=== PATIENT | male | born 1940 | race Caucasian/White ===

== ENCOUNTER 2018-06-09 22:38 | Inpatient (IN) ==
[2018-06-09] MEDS ORDERED: 0.9 % Sodium Chloride 1,000 ML IVC ONE (22:42)
--- NOTE | 2018-06-09 22:51 | Emergency Department Note ---
Disposition Clinical Impression: Constipation, Weakness Disposition: Admitted As Inpatient Condition: Fair Referrals: Sal Zazueta DO [Primary Care Provider] - Forms: ED Satisfaction Letter Time of Disposition: 00:15 ( will admit) General Adult HPI - General Chief complaint: ED Nausea/Vomiting/Diarrhea Stated complaint: DIARRHEA Time Seen by Provider: 06/09/18 22:42 Source: patient Mode of arrival: EMS Limitations: no limitations, age Nursing Notes Reviewed: Yes Vital Signs Reviewed: Yes - History of Present Illness HPI Narrative: 77-year-old male, who presents to the emergency department via EMS for evaluation for diarrhea and also confusion. Patient has known history of dementia, and has had problems with constipation. This evening according to EMS patient was having ongoing diarrhea, however family went ahead and gave the patient another enema. Patient's to me has stated his name year and who the president is, and for patient visit history of dementia he says alert and coherent. Patient states that after receiving the enema he felt like he had an impaction, however now that has resolved and he is feeling much better. I spoke with the patient's daughter who states that her father was actually impacted and not having diarrhea as she ended up having to do a digital disimpaction on the patient and get the patient an enema and after receiving the enema, patient was improved. Onset (ago): Just [employer] Location: abdomen Radiation: non-radiation Pain Scale: 0 Consistency: intermittent Improves with: nothing Worsens with: nothing Associated symptoms: Reports: denies other symptoms. Denies: confusion, chest pain, cough, diaphoresis, fever/chills, headaches, loss of appetite, malaise, nausea/vomiting, rash, seizure, shortness of breath Treatments Prior to Arrival: none - Related Data Home Medications Medication Instructions Recorded Confirmed Fluticasone Propionate Nasal 2 spray NS DAILY 04/12/16 06/09/18 [Flonase] Levothyroxine [Synthroid] 75 mcg PO DAILY 04/12/16 06/09/18 Losartan/Hydrochlorothiazide 1 each PO DAILY 04/12/16 06/09/18 [Hyzaar 100-25 Tablet] Montelukast [Singulair] 10 mg PO DAILY 04/12/16 06/09/18 Mv-Mn/FA/Vit K/Lycop/Lut/Coq10 1 each PO DAILY 04/12/16 06/09/18 [Daily Multivitamin Capsule] Potassium Chloride [Klor-Con 10] 10 meq PO BID 04/12/16 06/09/18 Tamsulosin [Flomax] 0.4 mg PO DAILY 04/12/16 06/09/18 amLODIPine [Norvasc] 10 mg PO DAILY 04/12/16 06/09/18 Rivaroxaban [Xarelto] 20 mg PO DAILY 03/25/17 06/09/18 Allergies Allergy/AdvReac Type Severity Reaction Status Date / Time acetaminophen [From Percocet] AdvReac Confusion Verified 06/09/18 08:36 [email or web address] AdvReac See Verified 06/09/18 08:36 Comments meperidine [From Demerol] AdvReac Vomiting Verified 06/09/18 08:36 oxycodone [From Percocet] AdvReac Confusion Verified 06/09/18 08:36 Limitations: ROS unobtainable due to patients medical condition Constitutional: Denies: fever, chills, weakness, weight change Eyes: Denies: eye pain, eye discharge, vision change ENT ED: Denies: ear pain, throat pain, dental pain, hearing loss, epistaxis, congestion, dysphagia Cardiovascular: Denies: chest pain, palpitations, dyspnea on exertion, edema, syncope Respiratory: Denies: cough, dyspnea, wheezes, hemoptysis, stridor Gastrointestinal: Denies: abdominal pain, nausea, vomiting, diarrhea, consti pation, hematemesis, melena, hematochezia Genitourinary: Denies: urgency, dysuria, frequency, hematuria Musculoskeletal: Denies: back pain, neck pain, arthralgia, myalgia Integumentary: Denies: rash, abrasion, lesions Neurological: Denies: headache, weakness, numbness, paresthesias, confusion, abnormal gait, vertigo Psychiatric: Denies: anxiety, depression, suicidal thoughts, homicidal thoughts, auditory hallucinations, visual hallucinations Endocrine: Denies: fatigue Hematological/Lymphatic: Denies: easy bleeding, easy bruising Allergic/Immunologic: Denies: facial swelling, urticaria Past Medical History - Past Medical History Medical history: Reports: asthma, atrial fibrillation, COPD Surgical history: Reports: cataract, cholecystectomy, herniorrhaphy, orthopedic, other, thyroidectomy Psychiatric history: Reports: no psych history - Social History Smoking Status: Never smoker Smokeless Tobacco Status: No Alcohol use: Reports: none Drug use: Reports: none Physical Exam - General Limitations: no limitations General appearance: alert, in no apparent distress - Head Head exam: atraumatic, normocephalic, normal inspection - Eye Eye exam: Present: normal appearance, PERRL, EOMI - Expanded Eye Exam Pupils: Left: reactive - ENT ENT exam: normal exam, normal oropharynx, mucous membranes moist - Expanded ENT Exam External ear exam: Present: normal external inspection Mouth exam: Present: normal external inspection Teeth exam: Present: normal inspection Throat exam: Present: normal inspection - Neck Neck exam: Present: normal inspection, full ROM, trachea midline - Chest Chest inspection: Present: normal inspection, symmetric chest wall rise - Respiratory Respiratory exam: Present: normal lung sounds bilaterally - Cardiovascular Cardiovascular exam: Present: regular rate, normal rhythm, normal heart sounds - Abdominal Exam Abdominal exam: Present: soft, Non-Tender. Absent: tenderness, distention, guarding, rebound, rigidity - Extremities Exam Extremities exam: Present: normal inspection, full ROM. Absent: tenderness, pedal edema - Expanded Upper Extremity Exam Shoulder exam: Present: normal inspection, full ROM Arm exam: Present: normal inspection, full ROM Elbow exam: Present: normal inspection, full ROM Forearm/Wrist exam: Present: normal inspection, full ROM Hand exam: Present: normal inspection, full ROM Vascular exam: Normal: capillary refill, radial pulse - Expanded Lower Extremity Exam Hip/Pelvis exam: Present: normal inspection, full ROM Upper leg exam: Present: normal inspection, full ROM Knee exam: Present: normal inspection, full ROM Lower leg exam: Present: normal inspection, full ROM Ankle exam: Present: normal inspection, full ROM Foot/toe exam: Present: normal inspection, full ROM Neurovascular/Tendon exam: Absent: motor deficit, sensory deficit, tendon deficit - Back Exam Back exam: Present: normal inspection, full ROM. Absent: tenderness - Neurological Exam Neurological exam: Present: alert, oriented X3 - Expanded Neurological Exam Patient oriented to: Present: person, place, time Coma Scale Eye Opening: Spontaneous Coma Scale Motor Response: Obeys Commands Coma Scale Verbal Response: Oriented Coma Scale Total: 15 - Psychiatric Psychiatric exam: Present: normal affect, normal mood - Skin Skin exam: Present: warm, dry, intact, normal color Course Vital Signs Temperature 97.2 F L 06/09/18 22:38 Pulse Rate 76 06/09/18 22:38 Respiratory Rate 18 06/09/18 22:38 Blood Pressure 126/72 06/09/18 22:38 O2 Sat by Pulse Oximetry 95 06/09/18 22:38 Temperature 97.2 F L 06/09/18 22:38 Pulse Rate 76 06/09/18 22:38 Respiratory Rate 18 06/09/18 22:38 Blood Pressure 126/72 06/09/18 22:38 O2 Sat by Pulse Oximetry 95 06/09/18 22:38 Oxygen Delivery Oxygen Delivery Room Air Medical Decision Making - MDM Narrative Medical decision making narrative: Patient did have a large bowel movement while,, he was in the room, I went ahead and did some more digital disimpaction(, patient is still quite impacted, due to the fact that he is quite weak while he is trying to stand, patient is at more risk for falling, I spoke with the daughter regarding possible senior living placement, she did not want the patient. In the senior living but stated that she did not feel comfortable having the patient go home. At this point I spoke with the hospitalist Dr. Piper, and we will place the patient and for overnight observation. - Medical Records Medical records reviewed: Yes I reviewed the patient's medical records. - Lab Data Lab results reviewed: Yes I reviewed the patient's lab results. Result diagrams: 06/09/18 23:03 06/09/18 23:03 Lab Results 06/09/18 06/09/18 06/09/18 Range/Units 23:00 23:03 23:03 WBC 10.3 (4.3-11.1) K/mcL RBC 3.66 L (4.19-5.50) M/mcL Hgb 10.9 L (12.9-16.9) g/dL Hct 32.9 L (37.5-50.1) % MCV 89.9 (83.0-100.0) fL MCH 29.8 (28.0-33.3) pg MCHC 33.1 (31.6-35.5) g/dL RDW 14.3 (11.5-14.5) % Plt Count 184 (140-400) K/mcL MPV 10.9 (9.4-12.4) fL Immature Gran % 0.3 (0-4) % Seg Neutrophils % 78.5 % Lymphocytes % 9.1 % Monocytes % 10.7 % Eosinophils % 1.0 % Basophils % 0.4 % Neutrophils # 8.1 (1.6-8.9) K/mcL Lymphocytes # 0.9 (0.6-4.6) K/mcL Monocytes # 1.1 (0.0-1.3) K/mcL Eosinophils # 0.1 (0.0-0.6) K/mcL Basophils # 0.0 (0.0-0.2) K/mcL Sodium 136 (136-145) mEq/L Potassium 3.1 L (3.5-5.1) mEq/L Chloride 101 (98-107) mEq/L Carbon Dioxide 27 (23-29) mEq/L BUN 14 (8-23) mg/dL Creatinine 0.73 (0.70-1.30) mg/dL Est GFR ( Amer) > 60 (> 60) Est GFR (Non-Af Amer) > 60 (> 60) BUN/Creatinine Ratio 19 (6-26) Glucose 114 H (70-105) mg/dL Calculated Osmolality 283 (280-300) Calcium 9.2 (8.6-10.3) mg/dL Total Bilirubin 0.6 (0.3-1.0) mg/dL AST 17 (13-39) Units/L ALT 16 (7-52) Units/L Alkaline Phosphatase 40 (34-104) Units/L Serum Total Protein 6.0 L (6.4-8.9) g/dL Albumin 3.8 (3.5-5.7) g/dL Globulin 2.2 L (2.4-3.5) g/dL Albumin/Globulin Ratio 1.7 (1.1-2.2) Lipase 5 L (11-82) Units/L Urine Color Yellow (Yellow) Urine Clarity Clear (Clear) Urine pH 5.5 (5.0-8.0) pH Units Ur Specific [place] 1.020 (1.010-1.025) Urine Protein Negative (Neg-Trace) mg/dL Urine Glucose (UA) Normal (Normal) mg/dL Urine Ketones Negative (Negative) mg/dL Urine Blood Negative (Negative) Urine Nitrite Negative (Negative) Urine Bilirubin Negative (Negative) Urine Urobilinogen Normal (Normal) mg/dL Ur Leukocyte Esterase Negative (Negative) Ur Culture Indicated? NO (NO) - Radiology Data Radiology results reviewed: Yes I reviewed the patient's radiology results. CT of abdomen and pelvis without contrast per radiology reading shows moderate constipation CT of head without contrast per radiology reading shows no acute abnormality.
[2018-06-09 23:15] LABS: Basophils % 0.4 %; Eosinophils # 0.1 K/mcL (0.0-0.6); Hematocrit 32.9 % (37.5-50.1); Hemoglobin 10.9 g/dL (12.9-16.9); Immature Granulocytes % 0.3 % (0-4); Lymphocytes # 0.9 K/mcL (0.6-4.6); Lymphocytes % 9.1 %; Mean Corpuscular HGB Conc 33.1 g/dL (31.6-35.5); Mean Corpuscular Hemoglobin 29.8 pg (28.0-33.3); Mean Corpuscular Volume 89.9 fL (83.0-100.0); Mean Platelet Volume 10.9 fL (9.4-12.4); Monocytes # 1.1 K/mcL (0.0-1.3); Monocytes % 10.7 %; Neutrophils # 8.1 K/mcL (1.6-8.9); Platelet Count 184 K/mcL (140-400); Red Blood Count 3.66 M/mcL (4.19-5.50); Red Cell Distribution Width 14.3 % (11.5-14.5); Segmented Neutrophils % 78.5 %
[2018-06-09 23:18] LABS: Bilirubin,Urine Negative (Negative); Blood,Urine Negative (Negative); Clarity,Urine Clear (Clear); Color,Urine Yellow (Yellow); Glucose,Urine (UA) Normal (Normal); Ketones,Urine Negative (Negative); Leukocyte Esterase,Urine Negative (Negative); Nitrite,Urine Negative (Negative); PH,Urine 5.5 pH Units (5.0-8.0); Protein,Urine Negative (Neg-Trace); Urobilinogen,Urine Normal (Normal)
[2018-06-09 23:32] LABS: Alanine Aminotransferase 16 Units/L (7-52); Albumin 3.8 g/dL (3.5-5.7); Albumin/Globulin Ratio 1.7 (1.1-2.2); Alkaline Phosphatase 40 Units/L (34-104); Aspartate Amino Transferase 17 Units/L (13-39); BUN/Creatinine Ratio 19 (6-26); Bilirubin,Total 0.6 mg/dL (0.3-1.0); Blood Urea Nitrogen 14 mg/dL (8-23); Calcium 9.2 mg/dL (8.6-10.3); Carbon Dioxide 27 mEq/L (23-29); Chloride 101 mEq/L (98-107); Globulin 2.2 g/dL (2.4-3.5); Glucose 114 mg/dL (70-105); Lipase 5 Units/L (11-82); Osmolality,Calculated 283 (280-300); Potassium 3.1 mEq/L (3.5-5.1); Sodium 136 mEq/L (136-145); eGFR For Non-African Americans > 60 (> 60)
[2018-06-10] MEDS ORDERED: Naloxone 0.4 MG/ML INJ IVP PRN ×2 (00:11→02:01)
[2018-06-10] MEDS ORDERED: Losartan/HCTZ 50-12.5 TABLET PO SCH (09:00)
[2018-06-10] MEDS: *HR* Rivaroxaban 10 MG TABLET PO SCH (09:23)
[2018-06-10] MEDS: Multivit/Ca/Min/Fe/FA 1 TAB TABLET PO SCH (09:23)
[2018-06-10] MEDS: amLODIPine 5 MG TABLET PO SCH (09:23)
[2018-06-10] MEDS: Fluticasone Propionate Nasal 50 MCG/SPRAY BOTTLE NS SCH (09:30)
--- NOTE | 2018-06-10 15:29 | Internal Med History&Physical ---
Date of Encounter: 06/10/18 Time of Encounter: 14:45 Assessment and Plan (1) Diarrhea Current visit: No Status: Acute Improved after repeat enema done on arrival to [facility] floor. Continue to monitor. Qualifiers: Diarrhea type: unspecified type Qualified Code(s): R19.7 - Diarrhea, unspecified (2) Fall Current visit: No Status: Acute PT and OT evaluations will be done. Orthostatic vital signs will be checked. Qualifiers: Encounter type: initial encounter Qualified Code(s): W19.XXXA - Unspecified fall, initial encounter (3) Hypokalemia Current visit: Yes Status: Acute Supplemental potassium will be given an labs monitored. (4) Anemia Current visit: Yes Status: Acute CBC and anemia testing will be ordered in a.m. Qualifiers: Anemia type: unspecified type Qualified Code(s): D64.9 - Anemia, unspecified (5) Weight loss Current visit: Yes Status: Acute TSH was normal at 2.740 on 03/15/2018. Chest CT 01/22/2018 and abdominal/pelvic CT done today showed no worrisome pathology suggesting malignancy. (6) Hypertension Current visit: Yes Status: Chronic June 10. Continue Norvasc but hold Hyzaar because of hypokalemia Qualifiers: Hypertension type: essential hypertension Qualified Code(s): I10 - Essential (primary) hypertension (7) Hypothyroidism Current visit: Yes Status: Chronic TSH normal at 2.740 on 03/15/2018. Continue present dose Synthroid. Qualifiers: Hypothyroidism type: unspecified Qualified Code(s): E03.9 - Hypothyroidism, unspecified (8) Atrial fibrillation Current visit: Yes Status: Chronic Continue Xarelto. Qualifiers: Atrial fibrillation type: paroxysmal Qualified Code(s): I48.0 - Paroxysmal atrial fibrillation Internal Medicine - H&P: HPI Chief complaint: Diarrhea, weakness, confusion Admitted From: Emergency Dept Plans for Post Hospital Care: Home History of present illness: Mr. Hollingsworth is a 77 year old male who came to emergency room reporting "diarrhea" onset the evening of 06/07/2018. His daughter who is a nurse checked him at home and felt he had constipation with liquid stool seeping around the formed stool. She gave him an enema at home with minimal results. He seemed more confused and weak so came to emergency room. He was found to have hypokalemia and anemia. CT scan showed moderate retained rectal stool suggesting constipation. He was admitted to [facility] floor for ongoing care needs. GI history is pertinent for cholecystectomy remotely. He denies disorders of his liver or exocrine pancreas. He has had intermittent abdominal pain. He denies fevers or chills. His daughter reports he has had weakness with a fall at home the evening of June 07. Evaluation in emergency room showed no fracture and he was discharged home. Past Med Surg Social Fam HX - Past Medical History Medical history: asthma, atrial fibrillation, COPD Additional medical history: pneumonia, stomach ulcer Psychiatric history: no psych history - Past Surgical History Surgical History: cataract, cholecystectomy, herniorrhaphy, orthopedic, other, thyroidectomy Additional surgical history: hemorrhoid,hernia, knee surgery - Social History Smoking Status: Never smoker Smokeless Tobacco Status: No Alcohol use: none Drug use: none - Family History Father Hx Family Cardiac Disorders: Yes Hx Family Respiratory Disorders: Yes Internal Medicine - H&P: Meds Fluticasone Propionate Nasal [Flonase] 2 spray NS DAILY 04/12/16 [History] Levothyroxine [Synthroid] 75 mcg PO DAILY 04/12/16 [History] Losartan/Hydrochlorothiazide [Hyzaar 100-25 Tablet] 1 each PO DAILY 04/12/16 [History] Montelukast [Singulair] 10 mg PO DAILY 04/12/16 [History] Mv-Mn/FA/Vit K/Lycop/Lut/Coq10 [Daily Multivitamin Capsule] 1 each PO DAILY 04/12/16 [History] Potassium Chloride [Klor-Con 10] 10 meq PO BID 04/12/16 [History] Tamsulosin [Flomax] 0.4 mg PO DAILY 04/12/16 [History] amLODIPine [Norvasc] 10 mg PO DAILY 04/12/16 [History] Rivaroxaban [Xarelto] 20 mg PO DAILY 03/25/17 [History] Acetaminophen [Arthritis Pain Relief] 650 mg PO BID 06/10/18 [History] Budesonide/Formoterol 160/4.5 [Symbicort 160/4.5] 2 puff IH BIDR 06/10/18 [History] Clotrimazole/Betamethasone Dip [Lotrisone Cream] 45 gm TP BID 06/10/18 [History] Ipratropium [place] 15 ml NS BID 06/10/18 [History] Ipratropium/Albuterol Neb [Duoneb] 3 ml IH Q6HR 06/10/18 [History] Ipratropium/Albuterol Neb [Duoneb] 3 ml IH Q6HR 06/10/18 [History] Losartan/Hydrochlorothiazide [Hyzaar 100-25 Tablet] 1 each PO DAILY 06/10/18 [History] Metoprolol Succinate [Toprol Xl] 25 mg PO DAILY 06/10/18 [History] Allergy/AdvReac Type Severity Reaction Status Date / Time acetaminophen [From Percocet] AdvReac Confusion Verified 06/09/18 08:36 [email or web address] AdvReac See Verified 06/09/18 08:36 Comments meperidine [From Demerol] AdvReac Vomiting Verified 06/09/18 08:36 oxycodone [From Percocet] AdvReac Confusion Verified 06/09/18 08:36 All Systems PM: A 10-system review of systems was performed and is negative for pertinent findings except as documented above in the HPI. Review of systems: Gen.: He states his weight has decreased from 269 pounds 2 years ago to present weight of 204 pounds, unintentionally Cardiovascular: He has history of hypertension and atrial fibrillation (? Paroxysmal). There is no known ID heart failure angina DVT or pulmonary embolus. Echocardiogram 05/11/2016 showed LVEF of 65%. The interventricular septum and posterior wall thickness measurements were 1.15 and 1.00 cm resp ectively. No significant valvular abnormality was seen. Indeterminate diastolic function assessment could be done because of atrial fibrillation. There was reported biatrial enlargement although LA size was 3.80 cm. Right atrial size is not recorded. Respiratory: He smoked from age [age]. He has been told he has asbestos damage to his lungs. Pulmonary function testing 09/25/2015 showed FVC 73% predicted, FEV1 73% predicted, FEV1/FVC 72%, MVV 47% predicted, RV 130% predicted, and DLCO (uncorrected) 73%. There was minimal improvement in FEV1 postbronchodilator. GI: As per history of present illness : He has had occasional hematuria in the past. He denies known disorders of his kidney bladder prostate otherwise. Neurologic: He is been diagnosed with dementia and is on donepezil. There is no known large distribution strokes or seizures. Endocrine: He had partial thyroidectomy remotely and is now on supplemental levothyroxine for hypothyroidism. He has no known diabetes or hyperlipidemia Hematology/oncology: He denies blood disorders cancers or anemia Psychiatric: He denies anxiety depression or other mental health issues [place] skeletal: He has DJD and had remote left knee meniscus surgery. He denies other bone joint or muscle disorders. - Constitutional Vitals: Temp Pulse Resp BP Pulse Ox 98.3 F 81 20 130/84 93 06/10/18 15:20 06/10/18 15:20 06/10/18 15:20 06/10/18 15:20 06/10/18 15:20 Exam: Gen.: He is a well-developed overweight male resting comfortably in bed who appears in no severe distress HEENT: Head is atraumatic and normocephalic. Eyes: EOMI. There is no scleral icterus. Mouth: Mucosa is moist. Neck: Supple and nontender. There is no thyromegaly or adenopathy noted. Heart: Regular without murmurs gallops or ectopics Lungs: No wheezes or crackles are heard. Abdomen: Soft and nontender. No masses or guarding are noted. Extremities: He has a large hematoma on his right lateral hip area. It has dissected proximally through tissue planes to his lower right abdominal side. There is no cyanosis edema or clubbing noted. Dorsalis pedis and posterior tibial pulses are trace to 1+ palpable bilaterally. Neurologic: Mental status: He is talkative and a fair historian. He does not remember several details of his past history. Cranial nerves: Smile is sym metric. Forehead wrinkles bilaterally. Tongue protrudes midline. EOMI. Motor: There is no pronator drift. Cerebellar: Finger to nose is intact bilaterally. Skin: Warm and dry Internal Med - H&P Results - Labs CBC & Chem 7: 06/09/18 23:03 06/09/18 23:03 Labs: Short CBC 06/09/18 Range/Units 23:03 WBC 10.3 (4.3-11.1) K/mcL Hgb 10.9 L (12.9-16.9) g/dL Hct 32.9 L (37.5-50.1) % Plt Count 184 (140-400) K/mcL Neutrophils # 8.1 (1.6-8.9) K/mcL BMP 06/09/18 23:03 Sodium 136 Potassium 3.1 L Chloride 101 Carbon Dioxide 27 BUN 14 Creatinine 0.73 Glucose 114 H Calcium 9.2 Liver Function 06/09/18 Range/Units 23:03 Total Bilirubin 0.6 (0.3-1.0) mg/dL AST 17 (13-39) Units/L ALT 16 (7-52) Units/L Alkaline Phosphatase 40 (34-104) Units/L Albumin 3.8 (3.5-5.7) g/dL Urine 06/09/18 Range/Units 23:00 Urine Color Yellow (Yellow) Urine Clarity Clear (Clear) Urine pH 5.5 (5.0-8.0) pH Units Ur Specific [place] 1.020 (1.010-1.025) Urine Protein Negative (Neg-Trace) mg/dL Urine Glucose (UA) Normal (Normal) mg/dL - Impressions ITS Impressions Head CT 06/09/18 22:47 IMPRESSION: No acute intracranial abnormality. Moderate chronic small vessel ischemic disease D/ / Zhen Garibay / Zhen Garibay Interpreting Provider: Zhen Garibay Abdomen/Pelvis CT 06/09/18 22:48 IMPRESSION: 1. Moderate retained rectal stool suggesting underlying constipation. No acute inflammatory changes. No evidence of appendicitis. 2. No other acute findings within the abdomen or pelvis. 3. Stable left adrenal adenoma. 4. Moderate prostatomegaly. Mild bladder wall thickening, possibly accentuated by incomplete bladder distention. 5. 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 Stable subpleural fibrotic changes at the lung bases. 6. Infiltration of the subcutaneous fat in the lower abdomen and pelvis, right greater than left. More focal soft tissue attenuation posteriorly on the right suggesting possibly resolving contusions. D/ / 06/10/2018 07:34:07 Zechariah Fragoso MD / [facility] Interpreting Provider: Zechariah Fragoso MD
[2018-06-10] MEDS: Finasteride 5 MG TABLET PO SCH (21:40)
[2018-06-10] MEDS: ALPRAZolam 0.5 MG TABLET PO PRN (22:05)
[2018-06-11 06:51] LABS: Basophils # 0.1 K/mcL (0.0-0.2); Basophils % 0.8 %; Eosinophils # 0.5 K/mcL (0.0-0.6); Eosinophils % 5.7 %; Hemoglobin 11.7 g/dL (12.9-16.9); Immature Granulocytes % 0.4 % (0-4); Lymphocytes # 1.1 K/mcL (0.6-4.6); Lymphocytes % 11.8 %; Mean Corpuscular HGB Conc 33.4 g/dL (31.6-35.5); Mean Corpuscular Hemoglobin 30.4 pg (28.0-33.3); Mean Corpuscular Volume 90.9 fL (83.0-100.0); Mean Platelet Volume 10.9 fL (9.4-12.4); Monocytes # 0.9 K/mcL (0.0-1.3); Monocytes % 9.9 %; Neutrophils # 6.6 K/mcL (1.6-8.9); Platelet Count 180 K/mcL (140-400); Red Blood Count 3.85 M/mcL (4.19-5.50); Red Cell Distribution Width 14.4 % (11.5-14.5); Segmented Neutrophils % 71.4 %
[2018-06-11 07:17] LABS: BUN/Creatinine Ratio 12 (6-26); Blood Urea Nitrogen 6 mg/dL (8-23); Calcium 8.7 mg/dL (8.6-10.3); Carbon Dioxide 30 mEq/L (23-29); Chloride 103 mEq/L (98-107); Glucose 93 mg/dL (70-105); Osmolality,Calculated 285 (280-300); Potassium 3.3 mEq/L (3.5-5.1); Sodium 139 mEq/L (136-145); eGFR For Non-African Americans > 60 (> 60)
[2018-06-11 08:43] LABS: % Iron Saturation 8 % (20-55); Iron 22 mcg/dL (65-175); Transferrin 199 mg/dL (203-362)
[2018-06-11 09:01] LABS: Ferritin 64 ng/mL (20-250)
[2018-06-11 09:06] LABS: Folate 19.7 ng/mL (3.0-16.0)
[2018-06-11] MEDS: Finasteride 5 MG TABLET PO SCH (10:19)
[2018-06-11] MEDS: Multivit/Ca/Min/Fe/FA 1 TAB TABLET PO SCH (10:21)
[2018-06-11] MEDS: Fluticasone Propionate Nasal 50 MCG/SPRAY BOTTLE NS SCH (10:24)
--- NOTE | 2018-06-11 12:22 | Internal Med Progress Note ---
Date of Encounter: 06/11/18 Time of Encounter: 12:10 - Assessment and plan (1) Diarrhea Current Visit: No Status: Acute Assessment and plan: June 11. Resolved. He is now on MiraLAX to maintain normal BM pattern. Qualifiers: Diarrhea type: unspecified type Qualified Code(s): R19.7 - Diarrhea, unspecified (2) Fall Current Visit: No Status: Acute Assessment and plan: June 11. PT and OT evaluations have been done. Orthostatic vital signs showed a pressure dropped from 146/73 lying to 97/68 standing. Hyzaar was discontinued on admission due to hypokalemia. Norvasc will be discontinued. He will be changed from Flomax to Cardura to treat BPH/urinary retention and hypertension. Qualifiers: Encounter type: initial encounter Qualified Code(s): W19.XXXA - Unspecified fall, initial encounter (3) Hypokalemia Current Visit: Yes Status: Acute Assessment and plan: June 11. Potassium improved to 3.3. Continue potassium supplementation. (4) Anemia Current Visit: Yes Status: Acute Assessment and plan: June 11. Anemia testing showed iron 22, transferrin saturation 8%, transferrin 199, ferritin 64, B12 575, and folate 19.7. Start ferrous sulfate with ascorbic acid in a.m. Etiology of iron deficiency anemia can be pursued by his PCP with colonoscopy etc. as an outpatient Qualifiers: Anemia type: unspecified type Qualified Code(s): D64.9 - Anemia, unspec ified (5) Weight loss Current Visit: Yes Status: Acute Assessment and plan: June 11. TSH was normal at 2.740 on 03/15/2018. Chest CT 01/22/2018 and abdominal/pelvic CT done today showed no worrisome pathology suggesting malignancy. (6) Hypertension Current Visit: Yes Status: Chronic Assessment and plan: June 11. Remain off Hyzaar. Discontinue Norvasc because of severe orthostatic blood pressure drop and avoiding edema requiring diuretic use. He will start Cardura for hypertension and BPH/urinary retention. Dose can be titrated as an outpatient as needed. Qualifiers: Hypertension type: essential hypertension Qualified Code(s): I10 - Es sential (primary) hypertension (7) Hypothyroidism Current Visit: Yes Status: Chronic Assessment and plan: June 11. TSH normal at 2.740 on 03/15/2018. Continue present dose Synthroid. Qualifiers: Hypothyroidism type: unspecified Qualified Code(s): E03.9 - Hypothyroidism, unspecified (8) Atrial fibrillation Current Visit: Yes Status: Chronic Assessment and plan: June 11. Continue Xarelto Qualifiers: Atrial fibrillation type: paroxysmal Qualified Code(s): I48.0 - Paroxysmal atrial fibrillation - Subjective Interval history: June 11. He had urinary retention during the night requiring Smallwood catheter insertion. Over 700 mL urine was obtained. Catheter was irritating so was removed this morning. He was started on Flomax and Proscar. He states he does not feel he needs to have a BM at this time. He denies other new complaints. - Constitutional Vitals: Temp Pulse Resp BP Pulse Ox 98.1 F 90 20 119/76 96 06/11/18 11:33 06/11/18 11:33 06/11/18 11:33 06/11/18 11:33 06/11/18 11:33 Exam: He is sitting in a chair at bedside resting comfortably and appears in no acute distress. His affect is bright and cheerful. He is appropriate in conve rsation. I reviewed his medications and lab results. Internal Medicine: Result - Labs CBC & Chem 7: 06/11/18 06:10 06/11/18 06:10 Labs: Short CBC 06/11/18 Range/Units 06:10 WBC 9.2 (4.3-11.1) K/mcL Hgb 11.7 L (12.9-16.9) g/dL Hct 35.0 L (37.5-50.1) % Plt Count 180 (140-400) K/mcL Neutrophils # 6.6 (1.6-8.9) K/mcL BMP 06/11/18 06:10 Sodium 139 Potassium 3.3 L Chloride 103 Carbon Dioxide 30 H BUN 6 L Creatinine 0.51 L Glucose 93 Calcium 8.7 - Impressions Impressions Abdomen/Pelvis CT 06/09/18 22:48 IMPRESSION: 1. Moderate retained rectal stool suggesting underlying constipation. No acute inflammatory changes. No evidence of appendicitis. 2. No other acute findings within the abdomen or pelvis. 3. Stable left adrenal adenoma. 4. Moderate prostatomegaly. Mild bladder wall thickening, possibly accentuated by incomplete bladder distention. 5. 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 Stable subpleural fibrotic changes at the lung bases. 6. Infiltration of the subcutaneous fat in the lower abdomen and pelvis, right greater than left. More focal soft tissue attenuation posteriorly on the right suggesting possibly resolving contusions. D/ / 06/10/2018 07:34:07 Zechariah Fragoso MD / kalyn Interpreting Provider: Zechariah Fragoso MD Consult Discharge Plan - Plan Referrals: Sal Zazueta DO [Primary Care Provider] - 1 week
[2018-06-11] MEDS: *HR* Rivaroxaban 10 MG TABLET PO SCH (13:09)
[2018-06-11] MEDS: Ipratropium/Albuterol Neb 3 ML IH SCH ×3 (13:27→22:01)
[2018-06-11] MEDS: Budesonide/Formoterol 160/4.5 1 PUFF INH IH SCH ×2 (13:27→22:01)
[2018-06-11] MEDS: ALPRAZolam 0.5 MG TABLET PO PRN (20:29)
[2018-06-11] MEDS: amLODIPine 5 MG TABLET PO SCH (23:18)
[2018-06-12] MEDS: Ipratropium/Albuterol Neb 3 ML IH SCH ×2 (04:18→10:10)
[2018-06-12 06:29] VITALS: BP 124/72
[2018-06-12] MEDS ORDERED: Ascorbic Acid 500 MG TABLET PO SCH (06:30)
[2018-06-12] MEDS: Fluticasone Propionate Nasal 50 MCG/SPRAY BOTTLE NS SCH (07:57)
[2018-06-12] MEDS: Multivit/Ca/Min/Fe/FA 1 TAB TABLET PO SCH (08:01)
[2018-06-12] MEDS: Finasteride 5 MG TABLET PO SCH (08:01)
[2018-06-12] MEDS: Budesonide/Formoterol 160/4.5 1 PUFF INH IH SCH (10:10)
--- NOTE | 2018-06-12 10:21 | Discharge Summary ---
Orders not resulted at time of discharge: Pending orders 06/09/18 23:09 Culture,Blood [BC] Stat 06/12/18 09:17 Basic Metabolic Panel AM 0400 Date of Encounter: 06/12/18 Time of Encounter: 10:10 - Discharge Diagnosis (1) Diarrhea Priority: Primary Status: Resolved Qualifiers: Diarrhea type: unspecified type Qualified Code(s): R19.7 - Diarrhea, unspecified (2) Fall Priority: Secondary Status: Acute Qualifiers: Encounter type: initial encounter Qualified Code(s): W19.XXXA - Unspecified fall, initial encounter (3) Hypokalemia Priority: Secondary Status: Acute (4) Anemia Priority: Secondary Status: Acute Qualifiers: Anemia type: iron deficiency Iron deficiency anemia type: unspecified iron deficiency Qualified Code(s): D50.9 - Iron deficiency anemia, unspecified (5) Weight loss Priority: Secondary Status: Chronic (6) Hypertension Priority: Secondary Status: Chronic Qualifiers: Hypertension type: essential hypertension Qualified Code(s): I10 - Essential (primary) hypertension (7) Hypothyroidism Priority: Secondary Status: Chronic Qualifiers: Hypothyroidism type: unspecified Qualified Code(s): E03.9 - Hypothyroidism, unspecified (8) Atrial fibrillation Priority: Secondary Status: Chronic Qualifiers: Atrial fibrillation type: paroxysmal Qualified Code(s): I48.0 - Paroxysmal atrial fibrillation Hospital course: Mr. Hollingsworth is a 77 year old male who came to emergency room reporting "diarrhea" onset the evening of 06/07/2018. His daughter who is a nurse checked him at home and felt he had constipation with liquid stool seeping around the formed stool. She gave him an enema at home with minimal results. He seemed more confused and weak so came to emergency room. He was found to have hypokalemia and anemia. CT scan showed moderate retained rectal stool suggesting constipation. He was admitted to [facility] for ongoing care needs. Initial orders were written by the emergency room physician. I saw him on June 10 and performed a history and physical. He had repeat enema after arrival to [facility] and had no further diarrhea or constipation issues. Physical therapy and occupational therapy evaluations and ongoing intervention were done. It was felt he would benefit from ongoing therapy services in the home. Orthostatic vital sign show drop in blood pressure from 146/73 lying to 97/68 standing. I felt this was contributory to recent falls at home. Amlodipine and Hyzaar were discontinued. He was started on low-dose Cardura for hypertension and BPH/urinary retention and this will be continued at discharge. Supplemental potassium was given for hypokalemia. His PCP can monitor labs. Anemia testing showed iron 22, transferrin saturation 8%, transferrin 199, ferritin 64, B12 575, and folate 19.5. He was started on ferrous sulfate with ascorbic acid. His PCP can order further workup to determine the etiology off the iron deficiency anemia such as colonoscopy etc. as clinically indicated. He had transient urinary retention requiring Smallwood catheter insertion. He was started on Proscar and Cardura in addition to Flomax. Smallwood catheter was disc ontinued on June 11 and he had spontaneous voiding. On June 12 arrangements were complete for him to be discharged to [facility]. Home health services will be ordered. He will follow with Dr. Zazueta within 1 week. - Time Spent with Patient Total time spent providing and/or coordinating discharge services: - Discharge Medications Prescriptions: New Ascorbic Acid [Vitamin C] 500 mg PO 0630 #30 tablet Doxazosin [Cardura] 1 mg PO HS #30 tablet Ferrous Sulfate 325 mg PO 0630 #30 tablet Finasteride [Proscar] 5 mg PO DAILY #30 tablet Continue Mv-Mn/FA/Vit K/Lycop/Lut/Coq10 [Daily Multivitamin Capsule] 1 each PO DAILY Levothyroxine [Synthroid] 75 mcg PO DAILY Fluticasone Propionate Nasal [Flonase] 2 spray NS DAILY Tamsulosin [Flomax] 0.4 mg PO DAILY Montelukast [Singulair] 10 mg PO DAILY Rivaroxaban [Xarelto] 20 mg PO DAILY Ipratropium/Albuterol Neb [Duoneb] 3 ml IH Q6HR Ipratropium [place] 15 ml NS BID Metoprolol Succinate [Toprol Xl] 25 mg PO DAILY Ipratropium/Albuterol Neb [Duoneb] 3 ml IH Q6HR Acetaminophen [Arthritis Pain Relief] 650 mg PO BID Budesonide/Formoterol 160/4.5 [Symbicort 160/4.5] 2 puff IH BIDR Clotrimazole/Betamethasone Dip [Lotrisone Cream] 45 gm TP BID Potassium Chloride [Klor-Con 10] 10 meq PO BID 3 Days #0 Discontinued Losartan/Hydrochlorothiazide [Hyzaar 100-25 Tablet] 1 each PO DAILY amLODIPine [Norvasc] 10 mg PO DAILY Losartan/Hydrochlorothiazide [Hyzaar 100-25 Tablet] 1 each PO DAILY Home Medications: Fluticasone Propionate Nasal [Flonase] 2 spray NS DAILY 04/12/16 [History] Levothyroxine [Synthroid] 75 mcg PO DAILY 04/12/16 [History] Montelukast [Singulair] 10 mg PO DAILY 04/12/16 [History] Mv-Mn/FA/Vit K/Lycop/Lut/Coq10 [Daily Multivitamin Capsule] 1 each PO DAILY 04/12/16 [History] Tamsulosin [Flomax] 0.4 mg PO DAILY 04/12/16 [History] Rivaroxaban [Xarelto] 20 mg PO DAILY 03/25/17 [History] Acetaminophen [Arthritis Pain Relief] 650 mg PO BID 06/10/18 [History] Budesonide/Formoterol 160/4.5 [Symbicort 160/4.5] 2 puff IH BIDR 06/10/18 [History] Clotrimazole/Betamethasone Dip [Lotrisone Cream] 45 gm TP BID 06/10/18 [History] Ipratropium [place] 15 ml NS BID 06/10/18 [History] Ipratropium/Albuterol Neb [Duoneb] 3 ml IH Q6HR 06/10/18 [History] Ipratropium/Albuterol Neb [Duoneb] 3 ml IH Q6HR 06/10/18 [History] Metoprolol Succinate [Toprol Xl] 25 mg PO DAILY 06/10/18 [History] Ascorbic Acid [Vitamin C] 500 mg PO 0630 #30 tablet 06/12/18 [Rx] Doxazosin [Cardura] 1 mg PO HS #30 tablet 06/12/18 [Rx] Ferrous Sulfate 325 mg PO 0630 #30 tablet 06/12/18 [Rx] Finasteride [Proscar] 5 mg PO DAILY #30 tablet 06/12/18 [Rx] Potassium Chloride [Klor-Con 10] 10 meq PO BID 3 Days #0 06/12/18 [Rx] Allergies/Adverse Reactions: Allergy/AdvReac Type Severity Reaction Status Date / Time acetaminophen [From Percocet] AdvReac Confusion Verified 06/09/18 08:36 guaifenesin AdvReac See Verified 06/09/18 08:36 Comments meperidine [From Demerol] AdvReac Vomiting Verified 06/09/18 08:36 oxycodone [From Percocet] AdvReac Confusion Verified 06/09/18 08:36 Date of admission: 06/11/18 14:52 Primary care physician: Sal Zazueta DO Consults: 06/10/18 15:49 Consult to Occupational Therapy [CONS] Routine Comment: Evaluate, develop and implement POC Reason for Consult: Fall, weakness Does patient have active BEDREST order?: No Is patient medically & hemodynamically stable?: Yes Patient assessed for mobility or mobilized this visit?: Yes Consult to Physical Therapy [CONS] Routine Comment: Evaluate, develop and implement POC Reason for Consult: Fall, weakness Does patient have active BEDREST order?: No Is patient medically & hemodynamically stable?: Yes Patient assessed for mobility or mobilized this visit?: Yes - Constitutional Vitals: Temp Pulse Resp BP Pulse Ox 98.2 F 87 16 124/72 94 06/12/18 06:28 06/12/18 06:28 06/12/18 06:28 06/12/18 06:28 06/12/18 06:28 - Patient Status Disposition: Home, Self-Care Condition: Fair - Discharge Instructions Follow Up With: Sal Zazueta DO [Primary Care Provider] - 1 week - Diet and Activity Activity: as per physical therapy Diet: regular diet
--- NOTE | 2018-06-12 10:54 | Physician Discharge Referral ---
Home Health/Hosp Referral Info Transfer to: Home Health Attending Provider: Feliz Provider in Charge Post Discharge: PCP (Sal Zazueta D.O.) - Diagnosis (1) Diarrhea Priority: Primary Status: Resolved (2) Fall Priority: Secondary Status: Acute (3) Hypokalemia Priority: Secondary Status: Acute (4) Anemia Priority: Secondary Status: Acute (5) Weight loss Priority: Secondary Status: Chronic (6) Hypertension Priority: Secondary Status: Chronic (7) Hypothyroidism Priority: Secondary Status: Chronic (8) Atrial fibrillation Priority: Secondary Status: Chronic - Respiratory Orders Smoking Cessation: Smoking cessation has been advised. For more information, call the [place] Tobacco Quit Line at 1-556-RDGI-NOW. - Diet/Nutrition Diet/Nutrition Orders: Cardiac - Activity Activity Orders: Walker - Services Needed Following services are medically necessary services: Nursing, Home Health Aide, Physical Therapy, Occupational Therapy - Transfer Medications Prescriptions: Ascorbic Acid [Vitamin C] 500 mg PO 0630 #30 tablet Doxazosin [Cardura] 1 mg PO HS #30 tablet Ferrous Sulfate 325 mg PO 0630 #30 tablet Finasteride [Proscar] 5 mg PO DAILY #30 tablet Home Medications: Fluticasone Propionate Nasal [Flonase] 2 spray NS DAILY 04/12/16 [History] Levothyroxine [Synthroid] 75 mcg PO DAILY 04/12/16 [History] Montelukast [Singulair] 10 mg PO DAILY 04/12/16 [History] Mv-Mn/FA/Vit K/Lycop/Lut/Coq10 [Daily Multivitamin Capsule] 1 each PO DAILY 04/12/16 [History] Tamsulosin [Flomax] 0.4 mg PO DAILY 04/12/16 [History] Rivaroxaban [Xarelto] 20 mg PO DAILY 03/25/17 [History] Acetaminophen [Arthritis Pain Relief] 650 mg PO BID 06/10/18 [History] Budesonide/Formoterol 160/4.5 [Symbicort 160/4.5] 2 puff IH BIDR 06/10/18 [History] Clotrimazole/Betamethasone Dip [Lotrisone Cream] 45 gm TP BID 06/10/18 [History] Ipratropium [place] 15 ml NS BID 06/10/18 [History] Ipratropium/Albuterol Neb [Duoneb] 3 ml IH Q6HR 06/10/18 [History] Ipratropium/Albuterol Neb [Duoneb] 3 ml IH Q6HR 06/10/18 [History] Metoprolol Succinate [Toprol Xl] 25 mg PO DAILY 06/10/18 [History] Ascorbic Acid [Vitamin C] 500 mg PO 0630 #30 tablet 06/12/18 [Rx] Doxazosin [Cardura] 1 mg PO HS #30 tablet 06/12/18 [Rx] Ferrous Sulfate 325 mg PO 0630 #30 tablet 06/12/18 [Rx] Finasteride [Proscar] 5 mg PO DAILY #30 tablet 06/12/18 [Rx] Potassium Chloride [Klor-Con 10] 10 meq PO BID 3 Days #0 06/12/18 [Rx] Allergies/Adverse Reactions: Allergy/AdvReac Type Severity Reaction Status Date / Time acetaminophen [From Percocet] AdvReac Confusion Verified 06/09/18 08:36 guaifenesin AdvReac See Verified 06/09/18 08:36 Comments meperidine [From Demerol] AdvReac Vomiting Verified 06/09/18 08:36 oxycodone [From Percocet] AdvReac Confusion Verified 06/09/18 08:36 Certification: Further, I certify that my clinical findings support that this patient is homebound (i.e. absences from home require considerable and taxing effort and are for medical reasons or islam services or infrequently or short duration when for other reasons) because: Homebound Reason: Leaving home requires considerable and taxing effort due to condition (Weakness, fall, orthostatic hypotension) Attestation: My signature below is to certify that this patient is under my care and that I, or nurse practitioner, or a physician's assistant designer working with me, has a [id number] encounter with this patient.
[2018-06-12 11:27] LABS: BUN/Creatinine Ratio 18 (6-26); Blood Urea Nitrogen 12 mg/dL (8-23); Carbon Dioxide 27 mEq/L (23-29); Chloride 104 mEq/L (98-107); Glucose 105 mg/dL (70-105); Osmolality,Calculated 290 (280-300); Potassium 3.6 mEq/L (3.5-5.1); Sodium 140 mEq/L (136-145); eGFR For Non-African Americans > 60 (> 60)
[2018-06-12] MEDS: *HR* Rivaroxaban 10 MG TABLET PO SCH (12:18)
== END 2018-06-12 14:00 | disposition home or self-care (01) | DRG 392 ==
LOC: EMEROOPIK 22:38 → INPPIK 22:38
PROVIDERS: ADMIT Internal Medicine; ATTEND Internal Medicine